=== PATIENT | female | born 1950 | race Caucasian/White ===

== ENCOUNTER 2019-08-14 10:10 | Day surgery (SDC) | payer BC ==
[~2019-08-14 10:10] MED LIST: CELECOXIB 100 MG CAPSULE PO ONE; FAMOTIDINE 20MG TABLET PO ONE; GENTAMICIN SULFATE IV ONE; MECLIZINE 25 MG TABLET PO ONE; METOCLOPRAMIDE 10 MG TABLET PO ONE; SODIUM CHLORIDE 0.9% IV ONE; VANCOMYCIN 1GM/200ML PREMIX 1 GM/200 ML PIGGYBACK IVPB ONE
[2019-08-14] MEDS ORDERED: ROPIVACAINE HCL (NAROPIN) /PF 5MG/ML 20ML VIAL IV ONE (10:11)
[2019-08-14] MEDS ORDERED: LIDOCAINE 2% MDV (20MG/ML) 20ML VIAL IV ONE (10:11)
[2019-08-14] MEDS ORDERED: MIDAZOLAM HCL 2MG/2ML VIAL IV ONE (10:11)
[2019-08-14] MEDS ORDERED: DEXAMETHASONE 4 MG/ML 1ML VIAL IVP ONE (10:11)
[2019-08-14] MEDS ORDERED: PROPOFOL 10 MG/ML VIAL IV ONE (10:11)
[2019-08-14] MEDS ORDERED: 0.9 % SODIUM CHLORIDE 10 ML VIAL IVP ONE (10:11)
[2019-08-14] MEDS ORDERED: RINGERS SOLUTION,LACTATED 1,000 ML IV ONE ×3 (10:55→13:46)
[2019-08-14 11:17] LABS: ABO GROUP O; RH TYPE POSITIVE
[2019-08-14 11:18] LABS: ANTIBODY SCREEN NEGATIVE (NEGATIVE)
[2019-08-14] MEDS ORDERED: TRANEXAMIC ACID 1,000 MG/10 ML ML IU ONE (12:52)
[2019-08-14] MEDS ORDERED: BUPIVACAINE 0.5% W/EPI MPF 30 ML VIAL IU ONE (12:52)
[2019-08-14] MEDS ORDERED: TRANEXAMIC ACID 1,000 MG/10 ML ML IV ONE (12:52)
[2019-08-14] MEDS ORDERED: KETOROLAC 30 MG/ML VIAL IVP PRN (13:58)
[2019-08-14] MEDS ORDERED: DIPHENHYDRAMINE HCL 25 MG CAPSULE PO PRN (13:58)
[2019-08-14] MEDS ORDERED: ACETAMINOPHEN W/ CODEINE 300MG/30MG TABLET PO PRN (13:58)
[2019-08-14] MEDS ORDERED: ZOLPIDEM TARTRATE 5 MG TABLET PO PRN (13:58)
[2019-08-14] MEDS ORDERED: AL HYDROX/MAG HYDROX 30ML UD PO PRN (13:58)
[2019-08-14] MEDS ORDERED: BISACODYL 10 MG SUPP RC PRN (13:58)
[2019-08-14] MEDS ORDERED: ACETAMINOPHEN W/ CODEINE 300MG/60MG TABLET PO PRN ×2 (13:58)
[2019-08-14] MEDS ORDERED: ONDANSETRON HCL IV 4 MG/2 ML VIAL IVP PRN (13:58)
[2019-08-14] MEDS ORDERED: NALOXONE 0.4 MG/1 ML VIAL IVP PRN (13:58)
[2019-08-14] MEDS ORDERED: MAGNESIUM HYDROXIDE 30 ML UDC PO PRN (13:58)
[2019-08-14] MEDS ORDERED: ALPRAZOLAM 0.25 MG TABLET PO PRN (16:20)
--- NOTE | 2019-08-14 17:35 | Rehab Evaluation ---
Patient Information - Patient Information Diagnosis: L knee DJD Ordered Treatment: PT Evaluate and Treat Status: Initial Evaluation Surgery: Yes (L TKA) Date of Surgery: 08/14/19 Past Medical/Surgical Hx: PAST MEDICAL/SURGICAL HISTORY Past Surgical History HERNIA REPAIR COLON RESECTION DIVERTICULITIS ORIF LEFT SHOULDER C SCOPES PMH - Respiratory Hx Respiratory Disorders Yes Hx Bronchitis Yes: HX OF Hx Pneumonia Yes: HX OF Hx Sleep Apnea Yes Hx of CPAP No PMH - Cardiovascular Hx Cardiovascular Disorders Yes Hx Hypertension Yes: GOOD CONTROL WITH MEDS Hx Heart Murmur Yes Exercise Tolerance Fair Comment: HYPERLIPIDEMIA PMH - Neuro Hx Neurological Disorders Yes Hx Headaches Yes: OCCASSIONALLY Hx Neuropathy Yes: IDIOPATHIC NEUROPATHY FEET PMH - GI Hx Gastrointestinal Disorders Yes Hx Diverticulitis Yes: HAD COLON RESECTION Hx Gastroesophageal Reflux Yes: AT TIMES Hx Liver Disease Yes: FATTY LIVER PMH - Hx Genitourinary Disorders No Hx Age of Menopause 54 PMH - Endocrine Hx Endocrine Disorders No PMH - Musculoskeletal Hx Musculoskeletal Disorders Yes Hx Arthritis Yes: LEFT KNEE AND HANDS PMH - Psych Hx Psychiatric Problems No PMH - Hematology/Oncology Hx Hematology/Oncology No Disorders Comment: PT HAD RECENT ABN MAMMO GOING FOR U/S AND ADD IMAGES 08-13-19 Premorbid Status: Detail (The patient was independent with all mobility prior to surgery.) Social History: Detail (The patient lives with spouse in 2 story house with 4 steps at the enterance and one reachable hand rail. The bathroom is equipped with a walk in shower , shower bench, hand held shower, standard toilet. There are grab bars by the shower and toilet. The patient has a front wheeled walker and a standard cane.) Precautions: [place], Fall, Other (WBAT on the L LE) - Time With Patient Total Time Spent With Patient (Min): 30 Treatment Procedures: Detail (Initial Evaluation, low complexity, gait training) Subjective Information - Subjective Information Per Patient (The patient complained of level 10 pain using 0-10 pain scale in L knee but wanted to try to get up.) Objective Data - Mental Status Patient Orientation: Oriented x3 - Visual Perception Appears within normal limits for therapeutic activities - ROM Not within normal limits (The patient's L knee AROM is limited s/p surgery. All other AROM is WNL.) - Strength/Tone Other (The patient's LE strength was noted tested s/p however was functional) - Bed Mobility Independent (The patient was independent with supine to and from sit transfer with PT guarding L LE only due to patient's pain complaints. The patient was independent with scooting up in bed.) - Transfers Independent (The patient was independent with sit to and from stand with verbal cues to ease out L LE. The patient was independent with toilet transfer with use of grab bar and with verbal cues for proper technique.) - Balance Balance Sitting: Good Balance Standing: Good - Sensation Intact - Gait Detail (The patient ambulated with front wheeled walker 7.5 feet x 2 WBAT on the L LE with supervision for safety only. The patient declined to ambulate further due to fatigue and pain. The patient is to ambulate this pm with nursing staff.) Therapy Assessment - Therapy Assessment Detail (The patient had increased L knee pain complaints however pt. was independent with bed mobility and transfers and ambulation with supervision. Due to pain all movements were slow and guarded. The patient will be seen for 1-2 visits for completion of inpt. PT goals.) Problem List - Problem List Physical Therapy Problem List: Detail (Decreased L knee AROM and L LE strength.) Goals - Goals Physical Therapy Goals: 1) The patient will ambulate with front wheeled walker household distances WBAT on the L LE independently. 2) The patient will ambulate on stairs with supervision for safety using proper technique. 3) The patient will be independent with TKA HEP. Plan - Plan Physical Therapy Plan: PT 1-2 sessions for gait training on levels and stairs and instruction in HEP.
[2019-08-14] MEDS: OXYCODONE HCL 5 MG TABLET PO PRN (19:31)
[2019-08-14] MEDS: DOCUSATE SODIUM 100 MG CAPSULE PO SCH ×2 (19:33→22:33)
[2019-08-14] MEDS: POTASSIUM CHLORIDE/D5-0.9%NACL 20 MEQ/1,000 ML BAG IV SCH (20:30)
[2019-08-14] MEDS: VANCOMYCIN 1GM/200ML PREMIX 1 GM/200 ML PIGGYBACK IVPB SCH (22:26)
[2019-08-15] MEDS: OXYCODONE HCL 5 MG TABLET PO PRN ×4 (01:54→16:30)
[2019-08-15] MEDS: ACETAMINOPHEN 325 MG TAB PO PRN ×4 (02:06→16:29)
[2019-08-15 06:33] LABS: HEMATOCRIT 35.4 % (35.0-47.0); HEMOGLOBIN 10.7 gm/dl (11.6-16.0)
[2019-08-15 06:48] LABS: BLOOD UREA NITROGEN 12 mg/dL (8-23); CREATININE 0.6 mg/dL (0.5-0.9); EST GLOMERULAR FILTRATION RATE > 60 mL/min; GLUCOSE,RANDOM 161 mg/dL (74-109)
--- NOTE | 2019-08-15 09:20 | Operative Note ---
DATE OF SURGERY: 08/14/2019 PREOPERATIVE DIAGNOSIS: End-stage arthrosis of the left knee. POSTOPERATIVE DIAGNOSIS: End-stage arthrosis of the left knee. OPERATION: Cemented left total knee arthroplasty using [employer] components with a size 5 cobalt chrome femur, a size 4 stemmed tibia baseplate, a 9 mm lipped tibial insert. The patella was not resurfaced because it was too thin. STAFF SURGEON: Eliecer Villa MD ANESTHESIA: Spinal. PREPARATION: Chloraprep. INDIVIDUAL CONSIDERATIONS: This lady was morbidly obese with a body mass index approaching 50%. This made exposure more difficult and closure because she had a soft tissue envelope approaching 3 inches. She also had a very thin patella and because of her obesity, I could not safely resurface it. PROCEDURE: The patient was taken to the operating room, placed supine on the operating room table. She had a successful induction of a spinal anesthetic. The left lower extremity was prepped and draped in the usual fashion. The patient had a midline approach to the knee. The limb was elevated and tourniquet was inflated to 300 mmHg. Sharp dissection carried down through skin and subcutaneous tissue. Small veins were coagulated with a Bovie. A medial arthrotomy was performed. The patella was everted and the knee was flexed. The patient had exposed bone in the medial compartment with bone loss and some in the notch and some chondromalacia changes of the patella. Fat pad was resected, ACL was sacrificed, and provisional anterior meniscectomies were performed. The capsule was released from the medial proximal tibia. The initial femoral pilot plant supervisor hole was then made freehand. The intramedullary femoral cutting jig was placed. It was cut in 7.0 degrees of valgus and adjusted for rotation and secured with pins for a 10 mm resection. The initial transverse cut was then made. The skin guide was placed in the anterior and posterior pilot plant supervisor holes in 3 degrees of external rotation. After drilling them, it was found that a size 5 would be appropriate. The anterior and posterior cuts followed by chamfer cuts were made. Osteophytes removed, and a size 5 trial was placed and found to fit well. The tibia was brought forward, and the remainder of the meniscal remnants removed with a Bovie. The extraarticular tibial cutting jig was placed. It was cut in neutral with a 3-degree AP slope. It was set for a 9 mm resection keyed off the high lateral side and secured with pins. When cutting the tibia, care was taken to preserve the PCL insertion on the tibia. After removing large osteophytes, a size 4 fit appropriately. It was adjusted for rotation and secured with pins. With a 9 mm trial and femoral trial, there was excellent motion and stability. Ligamentous balance, rotation alignment, and patellofemoral tracking were normal. The tourniquet was let down briefly to get bleeders posteriorly and then placed back up again. I then placed attention to the patella. Unfortunately, it only measured 18 mm. Even compensating for some cartilage loss, the most bone I could relieve would probably be maybe 10, at most 11. She was morbidly obese and leaving only 10 mm of bone was just not going to be sufficient to prevent further fracture, so I elected just to trim osteophytes. I then thoroughly irrigated out the knee with pulsatile Betadine and saline to remove any visual or palpable debris. Bony surfaces were dried with a CarboJet. A size 4 stemmed tibia baseplate was cemented into place followed by impaction of the 9 mm lipped tibial insert followed by cementing in the size 5 cobalt chrome femur. The implant surfaces were compressed, excess cement was removed. After the cement had set, there was excellent motion and stability. Ligamentous balance, rotation alignment, and patellofemoral tracking were normal. No lateral release was required. Final irrigation, and tourniquet was let down. Hemostasis was obtained with a Bovie. I infiltrated the skin and periosteum with 30 mL of 0.5% Marcaine with epinephrine. The capsule was then closed with a running #2 quill, subcu was closed in multiple layers of 0 quill, skin was closed with morris. Then 1 g of tranexamic acid was mixed with 30 mL of saline and injected into the knee through a sterile 18-gauge needle, and a sterile bulky compressive dressing was applied. The patient tolerated the procedure well. Needle and sponge counts were correct. Estimated blood loss was minimal, and she was taken back to recovery in good condition. There were no complications. [facility]ITAL[facility]ad[facility]
[2019-08-15] MEDS: DOCUSATE SODIUM 100 MG CAPSULE PO SCH (09:52)
[2019-08-15] MEDS: POTASSIUM CHLORIDE/D5-0.9%NACL 20 MEQ/1,000 ML BAG IV SCH ×2 (09:57→09:58)
[2019-08-15] MEDS ORDERED: SIMVASTATIN 20 MG TABLET PO SCH (10:00)
[2019-08-15] MEDS ORDERED: RIVAROXABAN 10 MG TABLET PO SCH (10:00)
[2019-08-15] MEDS ORDERED: LISINOPRIL 20 MG TABLET PO SCH (10:00)
[2019-08-15] MEDS ORDERED: FERROUS SULFATE 325 MG TAB PO SCH (10:00)
[2019-08-15] MEDS ORDERED: CHOLECALCIFEROL 1,000 UNIT TABLET PO SCH (10:00)
--- NOTE | 2019-08-15 10:40 | Physical Therapy Tx Note ---
Physical Therapy Tx Note - Treatment Note Tolerated: Good Total Time Spent With Patient: 25 Physical Therapy Tx Note: Detail (The patient was in recliner when PT arrived. The patient reported her L knee pain was a 5 but increased to a 7 after ambulating. The patient was independent with sit to stand from recliner. The patient ambulated with front wheeled walker WBAT on L LE at a slow pace a distance of 60 feet x 1 independently (supervision for safety only). The patient completed TKA HEP including: ankle pumps, quad sets, hamstring sets, gluteal sets, supine heel slides and SLR with use of strap. The patient declined stair this afternoon.) Physical Therapy Problem List: Detail (Decreased L knee AROM and L LE strength.) Physical Therapy Goals: 1) The patient will ambulate with front wheeled walker household distances WBAT on the L LE independently (Goal Met). 2) The patient will ambulate on stairs with supervision for safety using proper technique. 3) The patient will be independent with TKA HEP. (Goal Met) Physical Therapy Plan: PT 1-2 sessions for gait training on stairs.
[2019-08-15] MEDS: VANCOMYCIN 1GM/200ML PREMIX 1 GM/200 ML PIGGYBACK IVPB SCH (11:23)
--- NOTE | 2019-08-15 13:56 | Rehab Evaluation ---
Patient Information - Patient Information Diagnosis: L knee DJD Ordered Treatment: OT Evaluate and Treat Status: Initial Evaluation Surgery: Yes (L TKA) Date of Surgery: 08/14/19 Past Medical/Surgical Hx: PAST MEDICAL/SURGICAL HISTORY Past Surgical History HERNIA REPAIR COLON RESECTION DIVERTICULITIS ORIF LEFT SHOULDER C SCOPES PMH - Respiratory Hx Respiratory Disorders Yes Hx Bronchitis Yes: HX OF Hx Pneumonia Yes: HX OF Hx Sleep Apnea Yes Hx of CPAP No PMH - Cardiovascular Hx Cardiovascular Disorders Yes Hx Hypertension Yes: GOOD CONTROL WITH MEDS Hx Heart Murmur Yes Exercise Tolerance Fair Comment: HYPERLIPIDEMIA PMH - Neuro Hx Neurological Disorders Yes Hx Headaches Yes: OCCASSIONALLY Hx Neuropathy Yes: IDIOPATHIC NEUROPATHY FEET PMH - GI Hx Gastrointestinal Disorders Yes Hx Diverticulitis Yes: HAD COLON RESECTION Hx Gastroesophageal Reflux Yes: AT TIMES Hx Liver Disease Yes: FATTY LIVER PMH - Hx Genitourinary Disorders No Hx Age of Menopause 54 PMH - Endocrine Hx Endocrine Disorders No PMH - Musculoskeletal Hx Musculoskeletal Disorders Yes Hx Arthritis Yes: LEFT KNEE AND HANDS PMH - Psych Hx Psychiatric Problems No PMH - Hematology/Oncology Hx Hematology/Oncology No Disorders Comment: PT HAD RECENT ABN MAMMO GOING FOR U/S AND ADD IMAGES 08-13-19 Premorbid Status: Detail (The patient was independent with all mobility, meal prep, laundry and home mgmt tasks prior to surgery.) Social History: Detail (The patient lives with spouse in 2 story house with 4 steps at the entrance and one reachable hand rail. The bathroom is equipped with a walk in shower , shower bench, hand held shower, standard toilet. There are grab bars by the shower and toilet. The patient has a front wheeled walker and a standard cane.) Precautions: [place], Fall, Other (WBAT on the L LE) - Time With Patient Total Time Spent With Patient (Min): 50 Treatment Procedures: Detail (OT eval low complexity) Subjective Information - Subjective Information Per Patient Objective Data - Pain Pain Present: Yes (02/17) - Mental Status Patient Orientation: Oriented x3 - Visual Perception Appears within normal limits for therapeutic activities - ROM Within normal limits ([place] UE AROM WNL) - Strength/Tone Within normal limits ([place] UE strength WNL) - Coordination Appears within normal limits for therapeutic activities - Transfers Independent (Ind with sit to stand from EOB) - Balance Balance Sitting: Good Balance Standing: Good - Sensation Intact - Gait Detail (Pt ambulating in room with 2 wheeled walker and supervision.) - ADL's/IADL's Detail (Pt educated and she demonstrated learning of modified LE dressing techniques including doffing slipper socks and donning rosa socks (with assist), pants and tennis shoes. She required assist to tie shoes but reports her spouse can assist if needed. Reviewed kitchen and shower safety and modifications, pt verbalized understanding.) Therapy Assessment - Therapy Assessment Detail (Pt is Ind with modified LE dressing techniques.) Problem List - Problem List Physical Therapy Problem List: Detail (Decreased L knee AROM and L LE strength.) Occupational Therapy Problem List: Detail (No current IP OT problems identified.) Goals - Goals Physical Therapy Goals: 1) The patient will ambulate with front wheeled walker household distances WBAT on the L LE independently (Goal Met). 2) The patient will ambulate on stairs with supervision for safety using proper technique. 3) The patient will be independent with TKA HEP. (Goal Met) Occupational Therapy Goals: No current IP OT goals identified. Prognosis - Prognosis Good Plan - Plan Physical Therapy Plan: PT 1-2 sessions for gait training on stairs. Occupational Therapy Plan: Pt is discharged from IP OT. Thank you for this referral.
--- NOTE | 2019-08-15 16:02 | Physical Therapy Tx Note ---
Physical Therapy Tx Note - Treatment Note Tolerated: Good Total Time Spent With Patient: 20 Physical Therapy Tx Note: Detail (The patient was up in chair when PT arrived. The patient ambulated to bathroom with supervision for safety (7.5 feet). The patient ambulated with front wheeled walker 100 feet x 1 WBAT on the L LE independently. The patient ambulated on 3 steps using proper technique with use of one railing and folded walker with supervision for safety. The patient has met all inpt. PT goals and is discharged from inpt. PT.) Physical Therapy Problem List: Detail (Decreased L knee AROM and L LE strength.) Physical Therapy Goals: 1) The patient will ambulate with front wheeled walker household distances WBAT on the L LE independently (Goal Met). 2) The patient will ambulate on stairs with supervision for safety using proper technique.(Goal Met). 3) The patient will be independent with TKA HEP. (Goal Met) Physical Therapy Plan: Pt. discharged from inpt PT and is to continue with Home PT.
== END 2019-08-15 16:15 | disposition home health service (06) ==
LOC: SUR 10:10 → MEDSURG 14:48 → SUR 08-15 16:15
PROVIDERS: ATTEND Orthopaedic Surgery
DX: M17.12 Unilateral primary osteoarthritis, left knee (principal); I10 Essential (primary) hypertension; E78.00 Pure hypercholesterolemia, unspecified; R01.1 Cardiac murmur, unspecified; E66.9 Obesity, unspecified; G62.9 Polyneuropathy, unspecified
CPT/HCPCS: 27447; 01402; 64447; 85018; 85014; 80048; 86900; 86901; 86850; C1776 ×2; J3490; J2795; J3370 ×2; 76942; J1580; J3480; J7120